=== PATIENT | male | born 1960 | race Caucasian/White ===

== ENCOUNTER 2017-06-06 21:12 | Observation (INO) ==
--- NOTE | 2017-06-06 21:34 | Emergency Department Note ---
Disposition Clinical Impression: Pneumonia Qualifiers: Pneumonia type: due to unspecified organism Laterality: left Lung location: lower lobe of lung Qualified Code(s): J18.1 - Lobar pneumonia, unspecified organism Disposition: Admitted As Inpatient Condition: Fair Referrals: Alex Nunez MD [Primary Care Provider] - Forms: ED Satisfaction Letter, Work/School Release Abdominal Pain HPI - General Chief Complaint: ED Abdominal Pain Time Seen by Provider: 06/06/17 21:31 Source: patient, family, EMS Mode of arrival: EMS Limitations: no limitations Nursing Notes Reviewed: Yes Vital Signs Reviewed: Yes - History of Present Illness HPI Narrative: Patient presents to the ED complaining of left-sided abdominal pain. States he woke up with it and it worsened throughout the day. He describes it as a constant sharp pain in the left lower quadrant as well as in the left lower rib area. He rates it a 10 out of 10. He denies any nausea, vomiting or diarrhea. His last bowel movement was yesterday and was normal with no blood noted. He denies any urinary symptoms. No fever chills. He took 2 regular strength Tylenol 3-4 hours ago for his pain without relief. EMS also gave him nitroglycerin, aspirin and Zofran for the pain in his rib area to cover the possibility of a cardiac source. He denies any actual chest pain but states his ribs are "sore" where he was sleeping on his G-tube which he thought was the cause of his other pain as well. No shortness of breath. No chronic lung or GI problems. He does have a history of esophageal cancer and had a G-tube placed in April of last year to allow medications while he was undergoing chemotherapy and radiation. He has not had any treatment since April of last year and his states that they have been told there is no recurrence of the cancer. He follows up at the [facility]. However he continues to lose weight. He uses his G-tube primarily for medication and states he supposed to do supplemental nutrition support but he does not because he is allowed to eat by mouth and states he gets full when eating by mouth. G-tube has not been replaced since it was initially placed. They deny any complications with the G-tube. Other medical history is notable for remote CVA as well as hypertension. No abdominal surgeries other than the G-tube placement. Denies any recent travel or sick contacts. Pain Scale: 10 - Related Data Home Medications Medication Instructions Recorded Confirmed ALPRAZolam [Xanax 1 MG Tablet] 1 mg PO HS 06/06/17 06/06/17 Quetiapine Fumarate [Seroquel] 400 mg PO HS 06/06/17 06/06/17 Allergies Allergy/AdvReac Type Severity Reaction Status Date / Time morphine Allergy Itching Verified 06/06/17 21:19 Constitutional: Denies: fever, chills, weakness, weight change Eyes: Denies: eye pain, eye discharge, vision change ENT ED: Denies: ear pain, throat pain, dental pain, hearing loss, epistaxis, congestion, dysphagia Cardiovascular: Denies: chest pain, palpitations, dyspnea on exertion, edema, syncope Respiratory: Denies: cough, dyspnea, wheezes, hemoptysis, stridor Gastrointestinal: Reports: as per HPI, abdominal pain. Denies: nausea, vomiting , diarrhea, constipation, hematemesis, melena, hematochezia Genitourinary: Denies: urgency, dysuria, frequency, hematuria Musculoskeletal: Denies: back pain, neck pain, arthralgia, myalgia Integumentary: Denies: rash, abrasion, lesions Neurological: Denies: headache, weakness, numbness, paresthesias, confusion, abnormal gait, vertigo Psychiatric: Denies: anxiety, depression, suicidal thoughts, homicidal thoughts , auditory hallucinations, visual hallucinations Endocrine: Denies: fatigue Hematological/Lymphatic: Denies: easy bleeding, easy bruising Allergic/Immunologic: Denies: facial swelling, urticaria Abdominal Pain PMH - Past Medical History Medical history: Reports: CVA, hypertension, other Male Surgical History: Reports: herniorrhaphy, orthopedic, other, other Psychiatric history: Reports: anxiety, depression - Social History Smoking status: Current every day smoker Alcohol use: Reports: none Drug use: Reports: none Physical Exam - General Limitations: no limitations General appearance: alert, in no apparent distress, cachectic, other (frail appearing) - Head Head exam: atraumatic, normocephalic, normal inspection - Eye Eye exam: Present: normal appearance, PERRL, EOMI - ENT ENT exam: normal exam, normal oropharynx, mucous membranes moist - Neck Neck exam: Present: normal inspection, full ROM, trachea midline - Chest Chest inspection: Present: normal inspection, symmetric chest wall rise, tenderness (Left lower lateral rib cage) - Respiratory Respiratory exam: Present: normal lung sounds bilaterally - Cardiovascular Cardiovascular exam: Present: regular rate, normal rhythm, normal heart sounds - Abdominal Exam Abdominal exam: Present: soft, tenderness, other (G-tube in left mid abdomen, insertion site clean and dry and intact with no drainage or erythema, scant brown sediment in tubing). Absent: distention, guarding, rebound, rigidity Abdominal tenderness: Present: LUQ, LLQ, mild - Extremities Exam Extremities exam: Present: normal inspection, full ROM. Absent: tenderness, pedal edema - Back Exam Back exam: Present: normal inspection, full ROM. Absent: tenderness, CVA tenderness (R), CVA tenderness (L) - Neurological Exam Neurological exam: Present: alert, oriented X3 - Psychiatric Psychiatric exam: Present: normal affect, normal mood - Skin Skin exam: Present: warm, dry, intact, normal color Course Course Narrative: History presents to the ED with 1 day of left-sided abdominal pain. On arrival he was febrile on a 1.2 with mild tachycardia at 118. EKG on arrival showed a sinus tachycardia with no ischemic changes. Given the fever there is concern for possible infectious source of his abdominal pain such as colitis, diverticulitis, less likely appendicitis given the location of pain or G-tube complication. Will obtain labs, blood cultures and lactic acid along with CT scan of the abdomen. He will be given IV fluids as well as medication for pain. He has no current nausea. I have low suspicion for any cardiac etiology as his only chest pain is clearly in the rib cage area which is tender to palpation. There has been no trauma to suspect rib injury. - Reevaluation(s) Reevaluation #1: Laboratory studies show a leukocytosis of 19 with left shift. Lactic acid is normal as well as electrolytes. LFTs are normal as well. CT scan showed no acute abnormalities in the abdomen however there were opacities in the left lung base concerning for pneumonia. This does fit his clinical picture. Scan also showed some evidence of emphysema. Patient is a long standing smoker, currently smoking only one fourth a pack per day but has smoked up to a pack per day in the past. He denies any diagnosis of COPD or emphysema. He is not currently wheezing and oxygen saturations 96% on room air. Her has started to come down and is currently 100.7. Given patient's overall condition with fever and leukocytosis I feel that he will benefit from IV antibiotics and admission. also expressed concern caring for him at home because he is weak. Patient is agreement with hospitalization. Will contact the hospitalist to discuss admission. Reevaluation #2: I spoke to the hospitalist on-call, Dr. Bell who has agreed to admit the patient. Patient and family updated on plan. Will start IV antibiotics in the ED and continue IV fluids. Time: 00:06 Vital Signs Temperature 101.2 F H 06/06/17 21:12 Pulse Rate 118 06/06/17 21:12 Respiratory Rate 16 06/06/17 21:12 Blood Pressure 101/81 06/06/17 21:12 O2 Sat by Pulse Oximetry 92 06/06/17 21:12 Temperature 100.7 F H 06/06/17 23:35 Pulse Rate 90 06/06/17 23:35 Respiratory Rate 16 06/06/17 23:35 Blood Pressure 104/66 06/06/17 23:35 O2 Sat by Pulse Oximetry 95 06/06/17 23:35 Oxygen Delivery Oxygen Delivery Room Air Abdominal Pain - Differential Diagnosis Differential Diagnosis: Likely: abdominal pain non-specific, acute appendicitis , colonic obstruction, diverticulitis, small bowel obstruction. Unlikely: calculus of kidney, ischemic bowel - Medical Records Medical records reviewed: Yes I reviewed the patient's medical records. - Lab Data Lab results reviewed: Yes I reviewed the patient's lab results. Result diagrams: 06/06/17 22:10 06/06/17 22:10 Lab Results 06/06/17 06/06/17 06/06/17 Range/Units 22:10 22:10 22:10 WBC 19.0 H (4.3-11.1) K/mcL RBC 3.49 L (4.19-5.50) M/mcL Hgb 10.8 L (12.9-16.9) g/dL Hct 33.4 L (37.5-50.1) % MCV 95.7 (83.0-100.0) fL MCH 30.9 (28.0-33.3) pg MCHC 32.3 (31.6-35.5) g/dL RDW 14.6 H (11.5-14.5) % Plt Count 312 (140-400) K/mcL MPV 10.2 (9.4-12.4) fL Immature Gran % 0.5 (0-4) % Seg Neutrophils % 90.8 % Lymphocytes % 3.3 % Monocytes % 4.7 % Eosinophils % 0.4 % Basophils % 0.3 % Neutrophils # 17.3 H (1.6-8.9) K/mcL Lymphocytes # 0.6 (0.6-4.6) K/mcL Monocytes # 0.9 (0.0-1.3) K/mcL Eosinophils # 0.1 (0.0-0.6) K/mcL Basophils # 0.1 (0.0-0.2) K/mcL Sodium 136 (136-145) mEq/L Potassium 3.6 (3.5-5.1) mEq/L Chloride 108 H (98-107) mEq/L Carbon Dioxide 25 (23-29) mEq/L BUN 17 (6-20) mg/dL Creatinine 1.01 (0.70-1.30) mg/dL Est GFR ( Amer) > 60 (> 60) Est GFR (Non-Af Amer) > 60 (> 60) BUN/Creatinine Ratio 17 (6-26) Glucose 105 (70-105) mg/dL Calculated Osmolality 284 (280-300) Lactic Acid 1.1 (0.5-2.2) mmol/L Calcium 8.3 L (8.6-10.3) mg/dL Total Bilirubin 0.4 (0.3-1.0) mg/dL Direct Bilirubin 0.1 (0.0-0.2) mg/dL Indirect Bilirubin 0.3 (0.0-1.2) mg/dL AST 8 L (13-39) Units/L ALT 5 L (7-52) Units/L Alkaline Phosphatase 98 (34-104) Units/L Serum Total Protein 5.3 L (6.4-8.9) g/dL Albumin 3.0 L (3.5-5.7) g/dL Globulin 2.3 L (2.4-3.5) g/dL Albumin/Globulin Ratio 1.3 (1.1-2.2) Amylase 36 (29-103) Units/L Lipase 11 (11-82) Units/L - Radiology Data Radiology results reviewed: Yes I reviewed the patient's radiology results. ITS Impressions Abdomen/Pelvis CT 06/06/17 21:51 IMPRESSION: 1. Findings suspicious for pneumonia of the left lower lobe. 2. No acute findings identified in the abdomen and pelvis. 3. Enlarged prostate. 4. Mild emphysema. RECOMMENDATIONS: Managing Abdominal Aortic Aneurysms 3.0-3.4 cm: Every 3 years. *For abdominal aortas with maximum diameter of 2.6-2.9 cm meeting criteria for AAA (>50% of proximal normal segment). Reference: J Vasc Surg. 2008;50(4 Suppl):S2-49 D/ / 06/06/2017 23:31:01 Osman Ortiz MD / luna Interpreting Provider: Osman Ortiz MD - EKG Data EKG attestation: Yes I reviewed and interpreted this EKG. EKG shows normal: sinus rhythm Rate: tachycardia (at 117) Rhythm: NSR [place]/QRS: normal Interpretation: no acute changes, normal EKG
[2017-06-06] MEDS ORDERED: Ketorolac 30 MG/ML VIAL IVP ONE (21:49)
[2017-06-06] MEDS ORDERED: 0.9 % Sodium Chloride 1,000 ML IVC ONE (21:49)
[2017-06-06] MEDS ORDERED: Isovue-370 500 ML INFUS..BTL IV ONE (21:51)
[2017-06-06 22:19] LABS: Basophils # 0.1 K/mcL (0.0-0.2); Basophils % 0.3 %; Eosinophils # 0.1 K/mcL (0.0-0.6); Eosinophils % 0.4 %; Hematocrit 33.4 % (37.5-50.1); Hemoglobin 10.8 g/dL (12.9-16.9); Immature Granulocytes % 0.5 % (0-4); Lymphocytes # 0.6 K/mcL (0.6-4.6); Lymphocytes % 3.3 %; Mean Corpuscular HGB Conc 32.3 g/dL (31.6-35.5); Mean Corpuscular Hemoglobin 30.9 pg (28.0-33.3); Mean Corpuscular Volume 95.7 fL (83.0-100.0); Mean Platelet Volume 10.2 fL (9.4-12.4); Monocytes # 0.9 K/mcL (0.0-1.3); Monocytes % 4.7 %; Neutrophils # 17.3 K/mcL (1.6-8.9); Platelet Count 312 K/mcL (140-400); Red Blood Count 3.49 M/mcL (4.19-5.50); Red Cell Distribution Width 14.6 % (11.5-14.5); Segmented Neutrophils % 90.8 %
[2017-06-06 22:37] LABS: Alanine Aminotransferase 5 Units/L (7-52); Albumin/Globulin Ratio 1.3 (1.1-2.2); Alkaline Phosphatase 98 Units/L (34-104); Amylase 36 Units/L (29-103); Aspartate Amino Transferase 8 Units/L (13-39); BUN/Creatinine Ratio 17 (6-26); Bilirubin,Direct 0.1 mg/dL (0.0-0.2); Bilirubin,Indirect 0.3 mg/dL (0.0-1.2); Bilirubin,Total 0.4 mg/dL (0.3-1.0); Blood Urea Nitrogen 17 mg/dL (6-20); Calcium 8.3 mg/dL (8.6-10.3); Carbon Dioxide 25 mEq/L (23-29); Chloride 108 mEq/L (98-107); Globulin 2.3 g/dL (2.4-3.5); Glucose 105 mg/dL (70-105); Lipase 11 Units/L (11-82); Osmolality,Calculated 284 (280-300); Potassium 3.6 mEq/L (3.5-5.1); Sodium 136 mEq/L (136-145); Total Protein 5.3 g/dL (6.4-8.9); eGFR For African Americans > 60 (> 60); eGFR For Non-African Americans > 60 (> 60)
[2017-06-06] MEDS ORDERED: Levofloxacin 750 MG/150 ML 750 MG/150 ML BAG IVPB ONE (23:48)
[2017-06-07] MEDS ORDERED: Ibuprofen 400 MG TABLET PO PRN ×2 (00:10→01:12)
[2017-06-07] MEDS ORDERED: Naloxone 0.4 MG/ML INJ IVP PRN ×2 (00:10→01:12)
[2017-06-07] MEDS ORDERED: Acetaminophen 325 MG TABLET PO PRN ×2 (00:10→01:12)
[2017-06-07] MEDS ORDERED: 0.9 % Sodium Chloride 1,000 ML IVC SCH (00:15)
[2017-06-07] MEDS ORDERED: Isovue-370 500 ML INFUS..BTL IV ONE (01:12)
[2017-06-07] MEDS ORDERED: *HR* OxyCODONE Immed Rel 5 MG TABLET PO PRN (01:21)
[2017-06-07] MEDS: 0.9 % Sodium Chloride 1,000 ML IVC SCH ×2 (02:25→08:26)
--- NOTE | 2017-06-07 10:37 | Internal Med History&Physical ---
Date of Encounter: 06/07/17 Time of Encounter: 10:35 Assessment and Plan (1) AAA (abdominal aortic aneurysm) Current visit: Yes Status: Chronic pt as incidental finding of AAAA around 3 CM in size which he needs to have a followup not an acute issues at the present time Qualifiers: Presence of rupture: without rupture Qualified Code(s): I71.4 - Abdominal aortic aneurysm, without rupture (2) Pneumonia Current visit: Yes Status: Acute Noted to have infilterate per CT Increase WBC he is not septic based on clinical examination. Broad spectrum antibiotics to cover Community A Pneumonia . Cultures ordered and pedning No evidence of PE his Pulse ox is 99 on RA Supportive care otherwise he has hx of Throat cancer s/p radiation does puts him on a high risk for DVT ext examination is within normal limits for DVT Continue to provide supportive care as needed . If he continues to improve he coud be discharged home tomorrow on oral antibiotic which he would like Qualifiers: Pneumonia type: due to unspecified organism Laterality: left Lung location: lower lobe of lung Qualified Code(s): J18.1 - Lobar pneumonia, unspecified organism Internal Medicine - H&P: HPI Chief complaint: left lower abdominal pain Admitted From: Home History of present illness: Mr. Capps is a 56 year old male w male who came to ED with complains of pain in his left abdomen below his rib cage Pain was severe started suddenly no association with any htis including breathing Didn't receive with anything either Then it got better since he has been in the hospital No fever or chills nasuea vomiting cough chest pain SOB .He has been loosing some weight due to some difficulty in eating due to his Throat cancer which has been treated .. At the present time he want s to leave home . Past Med Surg Social Fam HX - Past Medical History Medical history: CVA, hypertension, other Psychiatric history: anxiety, depression - Social History Smoking Status: Current every day smoker Packs per day: 0.25 Smokeless Tobacco Status: No Alcohol use: none Drug use: none Internal Medicine - H&P: Meds ALPRAZolam [Xanax 1 MG Tablet] 1 mg PO HS 06/06/17 [History] Quetiapine Fumarate [Seroquel] 400 mg PO HS 06/06/17 [History] OxyCODONE Immed Rel [Roxicodone 10 MG] 10 mg PO QID PRN 06/07/17 [History] 3 Allergy/AdvReac Type Severity Reaction Status Date / Time morphine Allergy Itching Verified 06/06/17 21:19 All Systems PM: A 10-system review of systems was performed and is negative for pertinent findings except as documented above in the HPI. - Constitutional Constitutional: no anorexia, no chills, no excessive sweating, no fatigue, no fever(s), no falls, no lethargy, no malaise, no night sweats, no weakness - EENT Eyes: no blurry vision, no change in vision, no diplopia, no floaters, no irritation, no photophobia, no spots in vision Ears: no ear discharge, no ear pain, no tinnitus Nose, mouth and throat: no bleeding gums, no epistaxis, no mouth lesions, no mouth pain, no nasal congestion, no nasal discharge, no nasal obstruction, no odynophagia, no post-nasal drip, no sinus pain - Cardiovascular Cardiovascular ROS IM: no chest pain, no claudication, no diaphoresis, no dyspnea, no dyspnea on exertion, no edema, no irregular heart rhythm, no lightheadedness, no orthopnea, no palpitations, no paroxysmal nocturnal dyspnea , no syncope - Respiratory Respiratory: no cough, no dyspnea, no hemoptysis, no dyspnea on exertion, no wheezing, no snoring, no stridor, no pain on inspiration, no chest congestion, no excessive phlegm production, no change in phlegm color, no pain with cough - Gastrointestinal Gastrointestinal: abdominal pain, no belching, no bloating, no change in bowel habits, no change in stool character, no coffee ground emesis, no constipation, no cramping, no diarrhea, no dyspepsia, no dysphagia, no early satiety, no excessive flatus, no fecal incontinence, no heartburn, no hematemesis, no loose stools, no melena, no nausea, no tenesmus, no vomiting Additional comments: pain upper abdomen below rib cage - Genitourinary Genitourinary ROS male: no difficulty urinating, no dysuria, no flank pain, no genital pain, no hematuria, no nocturia, no post void dribbling, no testicular mass, no testicular pain, no urinary hesitancy, no urinary incontinence, no urinary urgency - Musculoskeletal Musculoskeletal ROS IM: no arthralgias, no back pain, no joint swelling, no muscle cramps, no muscle weakness - Psychiatric Psychiatric: no homicidal ideation, no hopelessness, no mood swings, no panic attacks, no suicidal ideation - Constitutional Vitals: Temp Pulse Resp BP Pulse Ox 98 F 80 14 121/74 99 06/07/17 07:04 06/07/17 07:04 06/07/17 07:04 06/07/17 07:04 06/07/17 07:04 General appearance: Present: mild distress, A&O X 3, no acute distress - Head Head exam: Present: atraumatic - Eye Eye exam: Present: EOMI, PERRL - Neck Neck exam general surgery: Present: full ROM, supple. Absent: tenderness, nuchal rigidity - Respiratory Respiratory exam: Absent: chest wall tenderness, decreased breath sounds, prolonged expiratory phase, rales, respiratory distress, rhonchi, stridor, tachypnea Additional comments: mild crackles on the left lower lobe otherwise essentially clear lung examination - Cardiovascular Cardiovascular exam: Present: RRR, +S1, +S2. Absent: clicks, distant heart sounds, gallop, irregular rhythm, JVD - GI/Abdominal GI/Abdominal exam: Present: normal bowel sounds, soft. Absent: distended, rebound, rigid, tenderness Additional comments: no tenderness appreciated for which pt came to the hospital . he has patent PEG tube which he still uses for his medications - Extremities Exam Extremities exam: Absent: pedal edema, tenderness - Neurological Exam Neurological exam: Present: CN II-XII intact, oriented X3, no focal deficits, strengths equal and symetr throughout. Absent: facial droop, speech deficit Internal Med - H&P Results - Labs CBC & Chem 7: 06/06/17 22:10 06/06/17 22:10 - VTE Reasons for not Prescribing Prophylaxis: Treatment not Indicated - Low risk for VTE
[2017-06-07 10:55] VITALS: BP 158/91
[2017-06-07] MEDS ORDERED: ALPRAZolam 1 MG TABLET PO SCH (21:00)
--- NOTE | 2017-06-08 10:56 | Discharge Summary ---
- NOTES TO OUTPATIENT PROVIDER Notes to Outpatient Provider: pt left AMA on 06/07/2017 Date of Encounter: 06/08/17 Time of Encounter: 10:53 - Discharge Diagnosis (1) AAA (abdominal aortic aneurysm) Priority: Secondary Status: Chronic Comments: incidental finding which he should followup Qualifiers: Presence of rupture: without rupture Qualified Code(s): I71.4 - Abdominal aortic aneurysm, without rupture (2) Pneumonia Priority: Primary Status: Acute Comments: wpt was admitted for CAP ,left side .he was started on IV antibiotics. Pt received two doses IV hand decided that he would like to leave AMA . he dint provide any reason . he was given blayne antibiotics for continuation of his treatment and advised that he followup with his [facility] Please note that he had hx of Throat cancer s/o radiation . Qualifiers: Pneumonia type: due to unspecified organism Laterality: left Lung location: lower lobe of lung Qualified Code(s): J18.1 - Lobar pneumonia, unspecified organism Hospital course: Mr. Capps is a 56 year old male Discharge discussed with: other (pt left AMA ) - Time Spent with Patient Total time spent providing and/or coordinating discharge services: Specific discharge activities: left AMA - Discharge Medications Prescriptions: Doxycycline 100 mg PO BID 7 Days #14 capsule Home Medications: ALPRAZolam [Xanax 1 MG Tablet] 1 mg PO HS 06/06/17 [History] Quetiapine Fumarate [Seroquel] 400 mg PO HS 06/06/17 [History] Doxycycline 100 mg PO BID 7 Days #14 capsule 06/07/17 [Rx] OxyCODONE Immed Rel [Roxicodone 10 MG] 10 mg PO QID PRN 06/07/17 [History] Allergies/Adverse Reactions: 3 Allergy/AdvReac Type Severity Reaction Status Date / Time morphine Allergy Itching Verified 06/06/17 21:19 Date of admission: 06/07/17 00:26 Primary care physician: Alex Nunez MD Discharging clinician: Shreyas Bell - Constitutional Vitals: Temp Pulse Resp BP Pulse Ox 98.2 F 89 16 158/91 98 06/07/17 10:54 06/07/17 10:54 06/07/17 10:54 06/07/17 10:54 06/07/17 10:54 General appearance: Present: mild distress, A&O X 3, no acute distress Exam: please review examination from yesterday H&P. no exam done since he left AMA - Patient Status Disposition: Home, Self-Care Condition: Fair - Discharge Instructions Follow Up With: Alex Nunez MD [Primary Care Provider] - - VTE Reasons for not Prescribing Prophylaxis: Treatment not Indicated - Low risk for VTE Documentation of Mechanical Device: Graduated compression elastic hosiery
--- NOTE | 2017-06-10 05:29 | Electrocardiograph Report ---
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
== END 2017-06-07 12:15 | disposition left against medical advice (07) ==
LOC: INPGRE 21:12 → EMEROOGRE 21:12 → INPGRE 06-07 00:40
PROVIDERS: ADMIT Internal Medicine; ATTEND Internal Medicine